=== PATIENT | female | born 1980 | race Caucasian/White ===

== ENCOUNTER 2016-11-07 10:19 | Observation (INO) | payer OTHER ==
[2013-11-16 08:01] VITALS: BP 144/87
[2016-11-07] MEDS ORDERED: TERBUTALINE SULFATE 1 MG/ML VIAL SC ONE (11:27)
[2016-11-07] MEDS ORDERED: TERBUTALINE SULFATE 1 MG/ML VIAL SC PRN (11:27)
[2016-11-07] MEDS ORDERED: RINGERS SOLUTION,LACTATED 1,000 ML IV PRN (11:27)
== END 2016-11-07 13:10 | disposition home or self-care (01) ==
LOC: OB 10:19
PROVIDERS: ADMIT Obstetrics & Gynecology; ATTEND Obstetrics & Gynecology
DX: O60.03 Preterm labor without delivery, third trimester (principal); Z3A.35 35 weeks gestation of pregnancy
CPT/HCPCS: 59025; G0378; G0379

== ENCOUNTER 2016-11-14 12:24 | Inpatient (IN) | payer BC, OTHER ==
[2016-11-14] MEDS ORDERED: DEXTROSE 5%-LACTATED RINGERS 1,000 ML IV PRN (12:36)
[2016-11-14] MEDS ORDERED: OXYTOCIN/DEXTROSE 5%-WATER 30 UNITS/500 ML BAG IV ONE ×2 (12:36→14:51)
[2016-11-14] MEDS ORDERED: LIDOCAINE HCL 50 ML VIAL PERI PRN (12:36)
[2016-11-14] MEDS ORDERED: RINGERS SOLUTION,LACTATED 1,000 ML IV ONE (12:36)
[2016-11-14] MEDS ORDERED: ONDANSETRON HCL/PF 2 MG/ML VIAL IV PRN ×2 (12:36→12:56)
[2016-11-14] MEDS ORDERED: NALOXONE HCL 1 MG/1 ML SYRG IV PRN (12:56)
[2016-11-14] MEDS ORDERED: BUPIVACAINE HCL/0.9 % NACL/PF 250 ML EP PRN (12:56)
[2016-11-14] MEDS ORDERED: fentaNYL CITRATE/PF 50 MCG/ML AMPUL IT SCH (13:00)
--- NOTE | 2016-11-14 14:08 | OR ---
Anesthesia Procedure Note - Anesthesia Procedure Note Narrative: Vital Signs - Last Taken Temp 36.9 C 11/16/13 09:00 Pulse Resp BP 144/87 11/16/13 09:24 Pulse Ox 11/14/16 14:07 ANESTHESIA PROCEDURE NOTE Date of Procedure: 11/14/2016 Time of procedure: 1330 Performed by: Lucas Meredith CRNA Advanced Registered Nurse: None. Preprocedure diagnosis: Active labor. Post procedure diagnosis: Same. Procedure: Insertion of labor epidural. Indications: The patient is a 36 -year-old multigravida female in active labor requesting labor epidural for pain management. Findings: See below. Details of the procedure: The patient was placed in a sitting position. Back was prepped with DuraPrep. Patient was then draped in a sterile fashion. Lidocaine 1% was infiltrated to the skin and subcutaneous tissues at the level of the L3 4 interspace. The epidural space was identified using a 18-gauge Tuohy needle with [id number] technique. 20 mcg fentanyl was given intrathecally using a 27 ga. spinal needle. Epidural catheter was inserted without difficulty. Negative test dose was elicited using 5 mL of 1.5% preservative-free lidocaine plus epinephrine 1 200,000. The epidural catheter was then taped and secured in place. EBL: Minimal. Fluids: N/A. Specimen: N/A. Post procedure condition: The patient tolerated the procedure well. No complications were noted. Thank you for this consultation. Tomlin CRNA
--- NOTE | 2016-11-14 14:47 | OR ---
Operative Report - Dictated Report Narrative: Spontaneous vaginal delivery of viable male in cephalic presentation AGNIESZKA position born at 1426 on 11/14/2014 with Apgars 8 and 9 weighing 2723 g. Cord clamping delayed 1 minute. Placenta delivered complete, intact, with three vessel cord Estimated blood loss: less than 50 ml Lacerations: None History for MU Definition: * The number of deliveries resulting in a live the patient experienced prior to current hospitalization * The previous delivery of live twins or any live multiple gestation is considered one live event. *If primagravida or nulliparous is documented select zero for the number of previous live births. Live Events: 3
[2016-11-14] MEDS ORDERED: SENNOSIDES 8.6 MG TABLET PO PRN (14:51)
[2016-11-14] MEDS ORDERED: BISACODYL 10 MG SUPP.RECT RC PRN (14:51)
[2016-11-14] MEDS ORDERED: HYDROCORTISONE 30 APPL TUBE TP PRN (14:51)
[2016-11-14] MEDS ORDERED: GLYCERIN/WITCH HAZEL LEAF 40 APPL BOX TP PRN (14:51)
[2016-11-14] MEDS ORDERED: oxyCODONE HCL/ACETAMINOPHEN 1 TAB TABLET PO PRN (14:51)
[2016-11-14] MEDS ORDERED: BENZOCAINE/MENTHOL 81 SPRAY CAN TP PRN (14:51)
[2016-11-14] MEDS: IBUPROFEN 800 MG TABLET PO PRN (20:39)
[2016-11-14] MEDS: DOCUSATE SODIUM 100 MG CAPSULE PO SCH (20:39)
[2016-11-15] MEDS: oxyCODONE HCL/ACETAMINOPHEN 1 TAB TABLET PO PRN ×3 (00:52→12:14)
[2016-11-15] MEDS: IBUPROFEN 800 MG TABLET PO PRN (07:10)
[2016-11-15] MEDS: DOCUSATE SODIUM 100 MG CAPSULE PO SCH (08:47)
[2016-11-15] MEDS ORDERED: PRENATAL VIT#96/FERROUS FUM/FA 1 TAB TABLET PO SCH (09:00)
[2016-11-15 09:38] LABS: Hematocrit 37.9 % (37.0-47.0); Hemoglobin 12.8 gm/dL (12.5-16.0); Mean Cell Volume 96.9 fl (78-100); Mean Corpuscular Hemoglobin 32.7 pg (27-31); Mean Corpuscular Hgb Conc 33.8 g/dl (32-36); Mean Platelet Volume 11.2 fl (6.0-9.5); Neutrophil % 82.9 % (42-75.0); Platelet Count 164 K/mm3 (150-450); Red Blood Count 3.91 M/mm3 (4.2-5.4); Red Cell Distribution Width 12.8 % (11.5-14.0); White Blood Count 14.5 K/mm3 (4.0-10.5)
[2016-11-15 09:58] LABS: Albumin * 2.4 gm/dl (3.4-5.0); Anion Gap 12.9 mmol/L (6.8-13.8); BUN/Creatinine Ratio 8.4 (9.0-21.6); Bilirubin, Total 0.2 mg/dL (0.0-1.1); Ca. Corrected For Albumin 10.2 mg/dL (8.4-10.2); Calcium * 9.2 mg/dL (7.9-10.9); Carbon Dioxide 25.2 mmol/L (24-32.6); Potassium 4.1 mmol/L (3.4-4.6); Total Protein 6.3 gm/dL (6.2-8.2)
[2016-11-15 11:16] LABS: Random Urine Total Protein Less than 6.0 mg/dL (0-12)
[2016-11-15 11:21] VITALS: BP 149/81
--- NOTE | 2016-11-15 11:48 | PN ---
Subjective - Date and Time Seen Date: 11/15/16 Time: 11:42 Objective - Vitals Vitals: Last Vital Signs Temp 36.8 C 11/15/16 07:33 Pulse 80 11/15/16 11:10 Resp 18 11/15/16 11:10 BP 149/81 11/15/16 11:10 Pulse Ox 98 11/15/16 11:10 Patient denies complaints. She specifically denies headache, visual changes, epigastric or abdominal pain, or edema. CBC and CMP within normal limits, urine protein elevated to 345. Lochia wnl Abdomen - soft, nontender Uterus - firm, at umbilicus - 1 No calf tenderness, DTR - 2/4, no clonus Impression: day #1 - s/p spontaneous vaginal delivery-baby transferred [facility] last p.m. due to respiratory distress. Mild preeclampsia-stable. Plan: Continue routine care. Preeclampsia precautions. Follow-up in 4 days for reevaluation. - Abnormal Lab Findings Abnormal Lab Findings: Abnormal Lab Results 11/15/16 11/15/16 11/15/16 Range/Units 09:30 09:30 10:46 WBC 14.5 H (4.0-10.5) K/mm3 RBC 3.91 L (4.2-5.4) M/mm3 MCH 32.7 H (27-31) pg MPV 11.2 H (6.0-9.5) fl Immature Gran % (Auto) 0.60 H (0.001-0.429) % Immature Gran # (Auto) 0.08 H (0.000-0.0310) K/mm3 Neutrophils % 82.9 H (42-75.0) % Lymphocytes % 11.4 L (20-51) % Neutrophils # 12.0 H (1.3-6.0) K/mm3 BUN/Creatinine Ratio 8.4 L (9.0-21.6) ALT 16 L (19-67) U/L Albumin 2.4 L (3.4-5.0) gm/dl Ur Random Creatinine 17.4 L (60-200) mg/dL U [place] Prot/Creat Ratio 345 H (0-199) mg/gm Cauti Physician Documentation - Urinary Catheter Management Uretheral (Faria) Date of Insertion: 11/14/16 Time of Insertion: 14:06 Date of Removal: 11/14/16 Time of Removal: 14:20
== END 2016-11-15 13:00 | disposition home or self-care (01) | DRG 775 ==
LOC: OB 12:24
PROVIDERS: ADMIT Obstetrics & Gynecology; ATTEND Obstetrics & Gynecology
PROC: 10E0XZZ Delivery of Products of Conception, External Approach (ICD-10-PCS; principal; 2016-11-14)
PROC: 4A1HXCZ Monitoring of Products of Conception, Cardiac Rate, External Approach (ICD-10-PCS; 2016-11-14)
PROC: 3E0S3CZ (ICD-10-PCS; 2016-11-14)
DX: O13.4 Gestational [pregnancy-induced] hypertension without significant proteinuria, complicating childbirth (principal); O14.04 Mild to moderate pre-eclampsia, complicating childbirth; O60.13X0 Preterm labor second trimester with preterm delivery third trimester, not applicable or unspecified; Z3A.36 36 weeks gestation of pregnancy; Z37.0 Single live birth